=== PATIENT | male | born 1970 | race Caucasian/White ===

== ENCOUNTER 2016-11-19 23:32 | Emergency (ER) | payer BC ==
[~2016-11-19 23:32] MED LIST: ALEVE220 MG PO; GLUCCHONDR PO; PROTONIX PO; ZANTAC300 MG PO
== END 2016-11-20 01:50 | disposition home or self-care (01) ==
LOC: ER 23:32
PROC: 0HQLXZZ Repair Left Lower Leg Skin, External Approach (ICD-10-PCS; principal; 2016-11-19)
DX: S91.212A Laceration without foreign body of left great toe with damage to nail, initial encounter (principal); S92.402A Displaced unspecified fracture of left great toe, initial encounter for closed fracture; Z88.0 Allergy status to penicillin; Z88.5 Allergy status to narcotic agent; Z79.899 Other long term (current) drug therapy; W20.8XXA Other cause of strike by thrown, projected or falling object, initial encounter
CPT/HCPCS: 12001; G0168; 73660-LT; 90471; 90714; 99283; A9270-GY